=== PATIENT | male | born 1995 | race Caucasian/White ===

== ENCOUNTER 2017-07-13 02:48 | Emergency (ER) | payer OTHER ==
[2017-07-13] MEDS ORDERED: Acetaminophen 500 MG TAB ONE (03:37)
[2017-07-13] MEDS ORDERED: Ondansetron HCl/PF 4 MG/2 ML Vial ONE (04:06)
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
== END 2017-07-13 05:14 | disposition home or self-care (01) ==
LOC: ERS 02:48
DX: S02.19XA Other fracture of base of skull, initial encounter for closed fracture (principal); F10.129 Alcohol abuse with intoxication, unspecified; S01.81XA Laceration without foreign body of other part of head, initial encounter; S00.11XA Contusion of right eyelid and periocular area, initial encounter; S01.511A Laceration without foreign body of lip, initial encounter; Y04.0XXA Assault by unarmed brawl or fight, initial encounter; Y92.59 Other trade areas as the place of occurrence of the external cause
CPT/HCPCS: 12013; 70450; 70486; 72125; 96360; 96374; J2405